=== PATIENT | male | born 1995 | race Caucasian/White ===

== ENCOUNTER 2021-12-21 16:12 | Emergency (ER) | payer MEDICAID ==
[~2021-12-21] VITALS: Ht 177.8 cm; Wt 72.7 kg
[2021-12-21 16:20] VITALS: BP 139/77
[2021-12-21] MEDS ORDERED: bacitracin 15gm ointment TP ONE (16:25)
[2021-12-21] MEDS ORDERED: LIDOcaine 1% W/epiNEPHrine 1:200,000 10ml vial IJ ONE (16:25)
[2021-12-21] MEDS ORDERED: LIDOcaine 1% w/EPI 1:100,000 30ml vial (MDV) IJ ONE (16:35)
[2021-12-21] MEDS ORDERED: traMADol 50MG tablet PO ONE (16:50)
[2021-12-21] MEDS ORDERED: IBUP-1986 PO (16:50)
[2021-12-21] MEDS ORDERED: acetaminophen 325mg tablet PO ONE (16:50)
[2021-12-21] MEDS ORDERED: SULF1TAB49 PO (16:50)
[2021-12-21] MEDS ORDERED: ibuprofen tablet 400 MG TABLET PO ONE (16:50)
[2021-12-21] MEDS ORDERED: sulfamethoxazole/trimethoprim DS (800/160mg) tablet PO ONE (16:50)
== END 2021-12-21 17:17 | disposition home or self-care (01) ==
LOC: ER 16:13
DX: M27.2 Inflammatory conditions of jaws (principal); F17.200 Nicotine dependence, unspecified, uncomplicated; F12.90 Cannabis use, unspecified, uncomplicated; Z59.00 Homelessness unspecified; Z88.0 Allergy status to penicillin; Z88.1 Allergy status to other antibiotic agents; Z79.2 Long term (current) use of antibiotics; Z79.899 Other long term (current) drug therapy
CPT/HCPCS: 10060; 99284; A6449